=== PATIENT | female | born 1985 | race Caucasian/White ===

== ENCOUNTER → 2016-07-11 | Outpatient (REF) | payer OTHER ==
[~2016-07-11] MED LIST: /ESCI20TA PO; ACET50TA PO; ANUS2.5C2 TOP; DOCU10ELUD PO; FERR325T3 PO; FERR5MLUD PO; IBUP200C PO; IBUP600T26 PO; MOM30SS PO; PRENTAB74 PO; ambien PO
== END | disposition home or self-care (01) ==
LOC: M LAB REF 17:17
PROVIDERS: ATTEND Advanced Practice Midwife
DX: Z34.83 Encounter for supervision of other normal pregnancy, third trimester (principal); Z36 Encounter for antenatal screening of mother; Z3A.00 Weeks of gestation of pregnancy not specified

== ENCOUNTER 2016-07-27 00:27 | Outpatient (CLI) | payer OTHER ==
[~2016-07-27] VITALS: Ht 154.9 cm; Wt 55.0 kg
== END 2016-07-27 03:45 | disposition home or self-care (01) ==
LOC: M LDO 00:27
PROVIDERS: ATTEND Obstetrics & Gynecology
DX: O47.1 False labor at or after 37 completed weeks of gestation (principal); Z3A.38 38 weeks gestation of pregnancy

== ENCOUNTER 2016-07-31 16:40 | Inpatient (IN) | payer OTHER ==
[2016-07-31] VITALS (7 sets, daily range): BP systolic 96–117; BP diastolic 51–75
[~2016-07-31] VITALS: Ht 154.9 cm; Wt 56.0 kg
[2016-07-31] MEDS ORDERED: TRAZ100T4 PO (16:56)
[2016-07-31] MEDS ORDERED: PROZ40CA PO (16:56)
[2016-07-31] MEDS ORDERED: LACTATED RINGER'S 1000 ML IV STA (17:01)
[2016-07-31] MEDS ORDERED: LR 1,000 ML IV SCH (17:01)
[2016-07-31] MEDS ORDERED: OXYTOCIN 30 UNITS IN 0.9% NaCl 500ML IV BAG (J2590) As Ordered ONE (17:08)
[2016-07-31 17:30] LABS: AMPHETAMINES LEVEL URINE POSITIVE (NEGATIVE); BENZODIAZEPINES URINE NEGATIVE (NEGATIVE); COCAINE METABOLITE URINE NEGATIVE (NEGATIVE); CONTROL LINE INT CTR LINE PRESENT; METHADONE URINE NEGATIVE (NEGATIVE); OPIATES URINE NEGATIVE (NEGATIVE); TRICYCLIC ANTIDEPRESS URINE NEGATIVE (NEGATIVE)
[2016-07-31 17:43] LABS: MEAN CORPUSCULAR HEMOGLOBIN 31.4 pg (27.0-33.0); MEAN CORPUSCULAR HGB CONC 33.7 g/dl (32.0-36.5); MEAN CORPUSCULAR VOLUME 93.2 fl (80.0-96.0); RED CELL DISTRIBUTION WIDTH 13.5 % (11.5-14.5); WHITE BLOOD COUNT 16.4 K/mm3 (4.0-10.0)
[2016-07-31] MEDS ORDERED: RHOGAM 300 MCG (1500 IU) INJ (J2790) IM SCH (17:45)
[2016-07-31] MEDS ORDERED: MOM 30ML SUSPENSION UDC PO PRN (17:45)
[2016-07-31] MEDS ORDERED: traZODone 100 MG TAB PO PRN (17:45)
[2016-07-31] MEDS ORDERED: ACETAMINOPHEN 500 MG TAB PO PRN (17:45)
[2016-07-31] MEDS ORDERED: ANUSOL HC CREAM 30GM TOP PRN (17:45)
[2016-07-31] MEDS ORDERED: MEASLES,MUMPS,RUBELLA VACCINE INJ (MMR-II) (90707) SC SCH (17:45)
[2016-07-31] MEDS ORDERED: DOCUSATE SODIUM 100 MG CAP PO PRN (17:45)
[2016-07-31] MEDS ORDERED: DIBUCAINE 1% OINTMENT 30GM TOP PRN (17:45)
[2016-07-31] MEDS ORDERED: OXYTOCIN DRIP 30 UNITS in APPROPRIATE DILUENT 1 EA IV SCH (17:45)
[2016-07-31] MEDS: METHYLERGONOVINE MALEATE 0.2 MG TAB PO SCH (18:35)
[2016-07-31] MEDS: IBUPROFEN 800 MG TAB PO PRN (19:36)
[2016-07-31] MEDS ORDERED: FLUoxetine 20 MG CAP PO SCH (22:00)
[2016-08-01] MEDS: METHYLERGONOVINE MALEATE 0.2 MG TAB PO SCH ×3 (00:24→11:50)
[2016-08-01] MEDS: IBUPROFEN 800 MG TAB PO PRN ×2 (02:09→10:12)
[2016-08-01 06:31] VITALS: BP 111/55
[2016-08-01] MEDS ORDERED: PRENATAL VITAMIN TAB PO SCH (09:00)
--- NOTE | 2016-08-01 09:14 | HPE ---
DATE OF ADMISSION: 07/31/2016 30-year-old, 4, para 2-2-0-4, estimated date of delivery 08/05/2016, presents at 39 weeks 2 days with reports of contractions since 11 o'clock this a.m. Reports bloody show, no loss of fluid. Fetus is active. Last normal menstrual period 10/03/2015 for STEPHANIE 07/09/2016. Sono at 7 weeks confirmed the date of 08/05/2016. Anatomy scan within normal limits. Sporadic care, has missed last three appointments. Treated with Prozac through the . OBSTETRICAL HISTORY: 2004: Normal spontaneous vaginal , viable male, 6 pounds 14, at 40 weeks. 2008: Normal spontaneous vaginal , viable male, 6 pounds 1, at 40 weeks. 2012: Normal spontaneous vaginal , twin gestation, at 35 weeks, viable males, 4 pounds 3 and 4 pounds 13, vertex and breech. She is ALLERGIC to PENICILLIN and PENICILLIN CROSS-REACTORS. MEDICAL/SURGICAL HISTORY: Abnormal Pap. Left breast lumpectomy. Anxiety and depression. Family history of diabetes. SOCIAL: . Father of the baby and family supportive. Reports one pack per day smoking. Denies alcohol or drugs. OBJECTIVE: Prepregnancy weight 108, total weight gain 20 pounds. AB+, antibody negative, Pap low grade, rubella immune. VDRL, hepatitis B, hepatitis C, HIV, gonorrhea, Chlamydia all negative. [place] was low risk. 1-hour glucose 134. 3-hour not completed. Group B strep is negative. Vital signs are stable. She is uncomfortable and breathing with contractions. Abdomen is soft, gravid. Cephalic presentation confirmed by sonogram. Uterine contractions 2-3 minutes apart and strong. heart 130, moderate variability with accelerations. Sterile vaginal exam: 8 cm, 100% and -1 with a bulging bag of water. ASSESSMENT: Multiparous, at term, active labor, imminent delivery. PLAN: Admit. Artificial rupture of membranes. Anticipate normal spontaneous vaginal .
--- NOTE | 2016-08-01 12:42 | DN ---
DATE OF DELIVERY: 07/31/2016 Artificial rupture of membranes. Moderate meconium-stained fluid at 1711. Dr. Blancas aware of her delivery. Spontaneous bearing-down efforts. Cervical rim reduced. Fully dilated 1715. Viable male delivered left occipitoanterior (JYOTSNA) through tight nuchal cord at 1717. Cord doubly clamped and cut. Infant to warmer for suctioning and resuscitation. scores 5 and 9. Placenta Hobbs intact with three-vessel cord at 1723. Fundus firmed with massage and intravenous (IV) Pitocin bolus. Estimated blood loss 300 mL. Perineum intact. weight 2678 grams, 5 pounds 14 ounces. Sponge, sharp, and instrument count correct. Mother and baby doing well.
[2016-08-01] MEDS ORDERED: IBUP-1114 PO (14:29)
[2016-08-01] MEDS ORDERED: ACET50TA PO (14:29)
[2016-08-01] MEDS ORDERED: METHYLERGONOVINE MALEATE 0.2 MG TAB PO PRN (18:00)
== END 2016-08-01 15:45 | disposition home or self-care (01) | DRG 560 ==
LOC: M LDO 16:40 → M LDI 17:01 → M OBS 20:06
PROVIDERS: ADMIT Advanced Practice Midwife; ATTEND Advanced Practice Midwife
PROC: 10E0XZZ Delivery of Products of Conception, External Approach (ICD-10-PCS; principal; 2016-07-31)
PROC: 10907ZC Drainage of Amniotic Fluid, Therapeutic from Products of Conception, Via Natural or Artificial Opening (ICD-10-PCS; 2016-07-31)
DX: O99.344 Other mental disorders complicating childbirth (principal); F32.9 Major depressive disorder, single episode, unspecified; Z3A.39 39 weeks gestation of pregnancy; O69.1XX0 Labor and delivery complicated by cord around neck, with compression, not applicable or unspecified; O77.0 Labor and delivery complicated by meconium in amniotic fluid; Z37.0 Single live birth; F41.9 Anxiety disorder, unspecified

== ENCOUNTER → 2016-10-13 | Day surgery (SDC) | payer OTHER ==
[~2016-10-13] VITALS: Ht 154.9 cm; Wt 52.2 kg
[~2016-10-13] MED LIST changes: +BUPIVACAINE HCL 0.25% 30 ML VIAL As Ordered ONE; +GLYCOPYRROLATE INJ 0.2 MG/ML 2 ML VIAL As Ordered ONE; +HYDROmorphone HCL 1 MG/ML SYRINGE (J1170) IV PRN; +HYDROmorphone HCL 2 MG/ML 1ML VIAL (J1170) As Ordered ONE; +IBUP-1114 PO; +IBUP800T23 PO; +KETOROLAC 30 MG/ML VIAL (J1885) IV SCH; +KETOROLAC 60 MG/2 ML VIAL (J1885) As Ordered ONE; +LIDOCAINE 2% INJ 100 MG/5 ML SDV (FOR ANES.) As Ordered ONE; +LR 1,000 ML IV ONE; +LR 1,000 ML IV SCH; +MIDAZOLAM INJ 2 MG/2 ML VIAL (J2250) As Ordered ONE; +NEOSTIGMINE 1MG/ML 5 ML SYRINGE (J2710) As Ordered ONE; +ONDANSETRON 4MG/2ML VIAL (J2405) As Ordered ONE; +OXYC1TAB23 PO; +PERCOCET 5MG/325MG TAB PO PRN; +PROPOFOL 200 MG/20 ML VIAL As Ordered ONE; +PROZ40CA PO; +ROCURONIUM BROMIDE 50 MG/5 ML VIAL As Ordered ONE; +SCOPOLAMINE 1.5 MG TRANSDERMAL TOP ONE; +TRAZ100T4 PO; +dexameTHASONE 4 MG/ML 1ML VIAL (J1100) As Ordered ONE; +fentaNYL 100 MCG/2 ML INJECTION (J3010) IV PRN; +fentaNYL 250 MCG/5 ML INJECTION (J3010) As Ordered ONE
[2016-10-13 07:52] LABS: MEAN CORPUSCULAR HEMOGLOBIN 29.9 pg (27.0-33.0); MEAN CORPUSCULAR HGB CONC 32.9 g/dl (32.0-36.5); MEAN CORPUSCULAR VOLUME 91.1 fl (80.0-96.0); RED CELL DISTRIBUTION WIDTH 13.9 % (11.5-14.5); WHITE BLOOD COUNT 7.1 K/mm3 (4.0-10.0)
[2016-10-13 08:01] LABS: CONTROL LINE HCG INT CTR LINE PRESENT
[2016-10-13] MEDS: PERCOCET 5MG/325MG TAB PO PRN ×2 (10:06→10:59)
[2016-10-13 11:00] VITALS: BP 128/75
--- NOTE | 2016-10-14 06:35 | RO ---
DATE OF PROCEDURE: 10/13/2016 PREOPERATIVE DIAGNOSIS: Satisfied parity with undesired fertility. POSTOPERATIVE DIAGNOSIS: Satisfied parity with undesired fertility. PROCEDURE: Laparoscopic bilateral tubal ligation using Filshie clip. SURGEON: Pastora Borges MD VALUATION CONSULTANT: LILY Mcpherson ANESTHESIA: General endotracheal anesthesia. ESTIMATED BLOOD LOSS: 5 mL. INTRAVENOUS FLUIDS: 900 mL. URINE OUTPUT: 50 mL. OPERATIVE FINDINGS: Patient with normal appearing uterus, bilateral adnexa, appendix and liver edge. DESCRIPTION OF OPERATION: After informed consent was obtained and written consent was reviewed, the patient was brought to the operating room where general endotracheal anesthesia was obtained. She was then placed in lithotomy position, and she was prepped and draped in a normal sterile fashion. A time-out in the operating room was then performed, identifying the patient, procedure to be performed, as well as drug allergies. A bivalve speculum was then placed revealing the cervix. The anterior lip of the cervix was grasped with a single-tooth tenaculum. A Hulka tenaculum was then advanced through the cervical os for means to manipulate the uterus. Single-tooth tenaculum as well as the speculum was removed. A Tsang catheter was then placed and set to gravity. Gloves were changed and attention was turned to the patient's abdomen where 0.25% Marcaine was infused in umbilical region. This area was incised and a 5 mm trocar and sleeve was advanced through this incision. The laparoscope was then replaced revealing intraabdominal placement. A pneumoperitoneum was then obtained with CO2 gas. A second skin incision was made 2 cm above the pubis symphysis in a midline. This area was infused with 0.25% Marcaine. An incision was made in this area. 8 mm trocar and sleeve was advanced through this incision under direct visualization. Next, the abdomen was then surveyed with the above noted findings. Using a Filshie clip applicator, a Filshie clip was then applied in the mid isthmus portion of the left fallopian tube with good blanching noted. The Filshie applicator was then reloaded and in a similar fashion the right fallopian tube was followed out to the fimbriated end and in the mid isthmus of that fallopian tube a Filshie clip was applied with good blanching noted. Instruments were then removed from the patient's abdomen. The pneumoperitoneum was then released. Trocars were removed. Incision was then closed with #4-0 Monocryl and was dressed with Dermabond. The Hulka tenaculum was removed as well as the Tsang catheter. The patient was then taken out of lithotomy position, was awakened from general anesthesia and taken to recovery in stable condition. Counts were correct.
== END ==
LOC: M SDC 07:06
PROVIDERS: ATTEND Obstetrics & Gynecology
DX: Z30.2 Encounter for sterilization (principal); D64.9 Anemia, unspecified; F41.9 Anxiety disorder, unspecified; G43.909 Migraine, unspecified, not intractable, without status migrainosus; F17.210 Nicotine dependence, cigarettes, uncomplicated; Z88.0 Allergy status to penicillin
CPT/HCPCS: 36415; 58671; 84703; 85027; 86850; 86900; 86901; A4649; J1100; J1170; J1885; J2250; J2405; J2710; J3010

== ENCOUNTER → 2017-05-31 | Outpatient (CLI) | payer OTHER ==
[~2017-05-31] MED LIST changes: -BUPIVACAINE HCL 0.25% 30 ML VIAL As Ordered ONE; -GLYCOPYRROLATE INJ 0.2 MG/ML 2 ML VIAL As Ordered ONE; -HYDROmorphone HCL 1 MG/ML SYRINGE (J1170) IV PRN; -HYDROmorphone HCL 2 MG/ML 1ML VIAL (J1170) As Ordered ONE; +IBUP1TAB7 PO; -IBUP800T23 PO; -KETOROLAC 30 MG/ML VIAL (J1885) IV SCH; -KETOROLAC 60 MG/2 ML VIAL (J1885) As Ordered ONE; -LIDOCAINE 2% INJ 100 MG/5 ML SDV (FOR ANES.) As Ordered ONE; -LR 1,000 ML IV ONE; -LR 1,000 ML IV SCH; -MIDAZOLAM INJ 2 MG/2 ML VIAL (J2250) As Ordered ONE; -NEOSTIGMINE 1MG/ML 5 ML SYRINGE (J2710) As Ordered ONE; -ONDANSETRON 4MG/2ML VIAL (J2405) As Ordered ONE; -PERCOCET 5MG/325MG TAB PO PRN; -PROPOFOL 200 MG/20 ML VIAL As Ordered ONE; -ROCURONIUM BROMIDE 50 MG/5 ML VIAL As Ordered ONE; -SCOPOLAMINE 1.5 MG TRANSDERMAL TOP ONE; +TRAZ-136 PO; -TRAZ100T4 PO; -dexameTHASONE 4 MG/ML 1ML VIAL (J1100) As Ordered ONE; -fentaNYL 100 MCG/2 ML INJECTION (J3010) IV PRN; -fentaNYL 250 MCG/5 ML INJECTION (J3010) As Ordered ONE
--- NOTE | 2017-05-31 14:23 | REP ---
ULTRASOUND LEFT BREAST: Reportedly, the patient palpates tender elongated lump for the past month between the 10 -o'clock position and 2 -o'clock position. Real-time sonographic evaluation of the left breast is performed between the 10 -o'clock and 12 -o'clock positions. No cystic or solid nodule is seen. There is dense fibroglandular tissue noted. A few mildly dilated ducts are seen in the retroareolar region. IMPRESSION: BI-RADS/ACR category 2. No cystic or solid nodules seen sonographically between 10 -o'clock and 2 -o'clock positions in the left breast where there is reportedly a palpable abnormality. Signed by Jesus Tavarez MD 05/31/2017 08:40 P
== END ==
LOC: M RAD 09:46
PROVIDERS: ATTEND Surgery
DX: N63.20 Unspecified lump in the left breast, unspecified quadrant (principal)

== ENCOUNTER → 2017-09-04 | Outpatient (CLI) | payer OTHER | LOC: M WUC 13:45 | DX: S09.92XD Unspecified injury of nose, subsequent encounter (principal) | CPT/HCPCS: 70150 ==

== ENCOUNTER → 2018-06-20 | Outpatient (REF) | payer OTHER ==
[~2018-06-20] MED LIST changes: +MAPA500T2 PO; -TRAZ-136 PO; +TRAZ-163 PO
[2018-06-20 20:30] LABS: CHLAMYDIA DNA AMPLIFICATION NEGATIVE (NEGATIVE); GC DNA AMPLIFICATION NEGATIVE (NEGATIVE)
[2018-06-22 18:21] LABS: HPV HYBRID CAPTURE II Positive (Negative)
== END ==
LOC: M LAB REF 17:08
PROVIDERS: ATTEND Advanced Practice Midwife
DX: Z11.3 Encounter for screening for infections with a predominantly sexual mode of transmission (principal)